=== PATIENT | female | born 1950 | race Caucasian/White ===

== ENCOUNTER 2016-06-10 09:03 | Emergency (ER) | payer OTHER ==
[2016-06-10 09:22] VITALS: RESP 16; TEMP 98.6
--- NOTE | 2016-06-10 09:28 | EDPHY ---
H & P Chief Complaint Nursing Narrative: pt states atraumatic knee pain since thursday and left arm weakness since yesterday and woke up today at 0730 with same weakness and now numbness and tingling in the hand. Time Seen by Provider: 06/10/16 09:25 HPI/ROS: CHIEF COMPLAINT: 1. Left arm paresthesia 2. Right knee pain HISTORY OF PRESENT ILLNESS: The patient presents to the ED with 2 separate complaints. 1st is right knee pain which has been worsened with walking downstairs. The patient complains of a sharp pain in the anterior aspect of her knee. She has no complaints of numbness or weakness in the knee. She has no complaints of right calf pain. She denies chest pain or shortness of breath. Additionally the patient has had some vague numbness along dorsal aspect of her left hand for the past 2 days. The patient does report subjective weakness. She denies additional peripheral neurologic complaints. The patient did report a mild right frontal headache 2 days ago which resolved spontaneously. The patient denies any complaints of headache, neck pain, cervical manipulation or additional complaints. The patient was recently started on Lipitor for hyperlipidemia. REVIEW OF SYSTEMS: A comprehensive 10 point review of systems is otherwise negative aside from elements mentioned in the history of present illness. Source: Patient Exam Limitations: No limitations - Medical/Surgical History Hx Asthma: No Hx Chronic Respiratory Disease: No Hx Diabetes: No Hx Cardiac Disease: No Hx Renal Disease: No Hx Cirrhosis: No Hx Alcoholism: No Hx HIV/AIDS: No Hx Splenectomy or Spleen Trauma: No Other PMH: thyroid, high cholesterol - Social History Smoking Status: Never smoked Alcohol Use: None Drug Use: None - Physical Exam Exam: General Appearance: Alert, no distress Eyes: Pupils equal and round no pallor or injection ENT, Mouth: Mucous membranes moist Respiratory: There are no retractions, lungs are clear to auscultation Cardiovascular: Regular rate and rhythm Gastrointestinal: Abdomen is soft and nontender, no masses, bowel sounds normal Neurological: Alert and oriented x4, patient reports decreased sensation to light touch along the dorsal aspect of her left arm. Skin: Warm and dry, no rashes Musculoskeletal: Neck is supple nontender Extremities: symmetrical, full range of motion Constitutional: Initial Vital Signs Temperature (C) 37.0 C 06/10/16 09:18 Heart Rate 60 06/10/16 09:18 Respiratory Rate 16 06/10/16 09:18 Blood Pressure 163/83 H 06/10/16 09:18 O2 Sat (%) 93 06/10/16 09:18 O2 Delivery Mode Room Air Allergies/Adverse Reactions: No Known Allergies Allergy (Unverified 06/10/16 09:22) Home Medications: Medication Instructions Recorded Lipitor 06/10/16 Synthroid 06/10/16 Medical Decision Making - Diagnostics EKG Interpretation: EKG: Complete interpretation has been separately recorded in the [facility] archive. Summary impression: Sinus rhythm Imaging Results: Carotid ultrasound: Negative for flow-limiting stenosis. Study results reported to me by Dr. Ball. ED Course/Re-evaluation: The patient presents to the ED with 2 issues 1st is a right knee sprain. There is no clinical evidence of a fracture. I do feel that this can be treated symptomatically with ice and ibuprofen. Additionally, the patient has had some paresthesias along the dorsal aspect of her left arm into her 4 fingers. It is not a clear peripheral nerve distribution. Her examination demonstrates no weakness in arm. She has no facial asymmetry or other abnormal neurologic findings. I did curbside Dr. Jam Khan from Neurology. At this point time we have obtained a carotid ultrasound which is negative for obvious stenosis. I have scheduled the patient for an MRI to be performed at noon today to evaluate for subtle CVA. The patient will follow up with Dr. Jam Khan for further evaluation of her upper extremity paresthesia. The patient does understand to return immediately for any new neurologic symptoms, severe headache or other concerns. Differential Diagnosis: Differential diagnosis considered includes knee sprain, knee fracture, stroke, TIA, peripheral neuropathy, cervical radiculopathy - Data Points Laboratory Results: Laboratory Results 06/10/16 09:34 06/10/16 09:34 06/10/16 06/10/16 09:34 09:34 WBC 6.60 10^3/uL 10^3/uL (3.80-9.50) RBC 4.77 10^6/uL 10^6/uL (4.18-5.33) Hgb 14.2 g/dL g/dL (12.6-16.3) Hct 41.9 % % (38.0-47.0) MCV 87.8 fL fL (81.5-99.8) MCH 29.8 pg pg (27.9-34.1) MCHC 33.9 g/dL g/dL (32.4-36.7) RDW 12.5 % % (11.5-15.2) Plt Count 263 10^3/uL 10^3/uL (150-400) MPV 9.2 fL fL (8.7-11.7) Neut % (Auto) 49.8 % % (39.3-74.2) Lymph % (Auto) 35.2 % % (15.0-45.0) [place] % (Auto) 6.2 % % (4.5-13.0) Eos % (Auto) 7.7 % H % (0.6-7.6) Baso % (Auto) 0.8 % % (0.3-1.7) Nucleat RBC Rel Count 0.0 % % (0.0-0.2) Absolute Neuts (auto) 3.29 10^3/uL 10^3/uL (1.70-6.50) Absolute Lymphs (auto) 2.32 10^3/uL 10^3/uL (1.00-3.00) Absolute Monos (auto) 0.41 10^3/uL 10^3/uL (0.30-0.80) Absolute Eos (auto) 0.51 10^3/uL H 10^3/uL (0.03-0.40) Absolute Basos (auto) 0.05 10^3/uL 10^3/uL (0.02-0.10) Absolute Nucleated RBC 0.00 10^3/uL 10^3/uL (0-0.01) Immature Gran % 0.3 % % (0.0-1.1) Immature Gran # 0.02 10^3/uL 10^3/uL (0.00-0.10) Sodium 142 mEq/L mEq/L (134-144) Potassium 4.6 mEq/L mEq/L (3.5-5.2) Chloride 103 mEq/L mEq/L (97-110) Carbon Dioxide 24 mEq/l mEq/l (22-31) Anion Gap 15 mEq/L mEq/L (8-16) BUN 13 mg/dL mg/dL (7-23) Creatinine 0.8 mg/dL mg/dL (0.6-1.0) Estimated GFR > 60 Glucose 84 mg/dL mg/dL (70-100) Calcium 9.3 mg/dL mg/dL (8.5-10.4) Departure - Departure Disposition: Home, Routine, Self-Care Clinical Impression: Paresthesia of left arm Knee sprain Qualifiers: Encounter type: initial encounter Involved ligament of knee: lateral collateral ligament Laterality: right Qualified Code(s): S83.421A - Sprain of lateral collateral ligament of right knee, initial encounter Condition: Good Instructions: Knee Sprain (ED) Additional Instructions: 1. Please go to the [facility] imaging department for a brain MRI scan which has been ordered at noon today. 2. Please schedule a follow-up appointment with a neurologist you have been referred to. 3. Please begin taking an 81 mg aspirin on a daily basis until seen by Neurology. Referrals: Jam Khan MD [Medical Doctor] - As per Instructions
--- NOTE | 2016-06-10 09:37 | CPEKG ---
Heart Rate: 54 RR Interval: 1111 P-R Interval: 188 QRSD Interval: 90 QT Interval: 444 QTC Interval: 421 P [place]: 68 QRS [place]: 31 T Wave [place]: 43 EKG Severity - NORMAL ECG - EKG Impression: SINUS RHYTHM Electronically Signed By: Noble Small 10-Jun-2016 11:02:50
[2016-06-10 09:40] LABS: % IMMATURE GRANULYOCYTES 0.3 % (0.0-1.1); ABSOLUTE IMMATURE GRANULOCYTES 0.02 10^3/uL (0.00-0.10); ADD DIFF? NO; ADD MORPH? NO; ADD SCAN? NO; ATYPICAL LYMPHOCYTE FLAG 10 (0-99); FRAGMENT RBC FLAG 0 (0-99); HEMATOCRIT 41.9 % (38.0-47.0); HEMOGLOBIN 14.2 g/dL (12.6-16.3); LEFT SHIFT FLG 0 (0-99); LIPEMIA HEMOLYSIS FLAG 90 (0-99); MEAN CELL HEMOGLOBIN 29.8 pg (27.9-34.1); MEAN CELL HEMOGLOBIN CONCENTR. 33.9 g/dL (32.4-36.7); MEAN CELL VOLUME 87.8 fL (81.5-99.8); MEAN PLATELET VOLUME 9.2 fL (8.7-11.7); PLATELET CLUMPS FLAG 0 (0-99); PLATELET COUNT 263 10^3/uL (150-400); RED BLOOD CELL COUNT 4.77 10^6/uL (4.18-5.33); RED CELL DISTRIBUTION WIDTH 12.5 % (11.5-15.2)
[2016-06-10 09:55] LABS: ANION GAP 15 mEq/L (8-16); CALCIUM 9.3 mg/dL (8.5-10.4); CARBON DIOXIDE 24 mEq/l (22-31); CHLORIDE 103 mEq/L (97-110); CREATININE 0.8 mg/dL (0.6-1.0); GLOMERULAR FILTRATION RATE > 60; GLUCOSE 84 mg/dL (70-100); POTASSIUM 4.6 mEq/L (3.5-5.2); SODIUM 142 mEq/L (134-144)
[2016-06-10 11:06] VITALS: BP 125/86; PULSE 57; O2SAT 98
== END 2016-06-10 10:38 | disposition home or self-care (01) ==
LOC: CED 09:03
DX: S83.421A Sprain of lateral collateral ligament of right knee, initial encounter (principal); R20.9 Unspecified disturbances of skin sensation
CPT/HCPCS: 70551; 93005; 93880; G0463; 80048-PO; 85025-PO

== ENCOUNTER → 2016-07-03 | Outpatient (CLI) | payer OTHER ==
[~2016-07-03] MED LIST: IOPAMIDOL (ISOVUE 370) 100 ML BTL IV ONE
== END ==
LOC: FIMAGING 14:07
PROVIDERS: ATTEND Psychiatry & Neurology Neurology
DX: G45.9 Transient cerebral ischemic attack, unspecified (principal); I70.8 Atherosclerosis of other arteries; R29.818 Other symptoms and signs involving the nervous system; J34.89 Other specified disorders of nose and nasal sinuses
CPT/HCPCS: 70496; 70498; Q9967

== ENCOUNTER → 2016-07-09 | Outpatient (CLI) | payer OTHER | LOC: FIMAGING 07:24 | PROVIDERS: ATTEND Psychiatry & Neurology Neurology | DX: M54.12 Radiculopathy, cervical region (principal); M50.30 Other cervical disc degeneration, unspecified cervical region ==